=== PATIENT | female | born 1950 | race Caucasian/White ===

== ENCOUNTER 2018-07-27 09:32 | Emergency (ER) | payer OTHER ==
[~2018-07-27] VITALS: Ht 154.9 cm; Wt 59.0 kg
[~2018-07-27 09:32] MED LIST: ALL DAY ALLERGY10 M2 PO; BEN20 PO; BENAZEPRIL HYDR40 M1; BENAZEPRIL10 M1 PO; DICLOFENAC SODI75 MG PO; GLU500 PO; GOOD SENSE OMEP20 MG PO; LOVASTATIN40 MG PO; METFORMIN HCL850 MG PO; MYRBETRIQ25 MG; NITROGLYCERIN0.4 MG SL; PANTOPRAZOLE SO40 M1 PO; PAROXETINE HCL20 M1 PO; PAROXETINE PO; PAROXETINE20 M1 PO; ZES20
[2018-07-27 09:40] VITALS: Ht 154.9 cm; Wt 59.0 kg
[2018-07-27 12:24] VITALS: BP 160/83
== END 2018-07-27 12:24 | disposition home or self-care (01) ==
LOC: ED 09:32
DX: S06.0X1A Concussion with loss of consciousness of 30 minutes or less, initial encounter (principal); S00.81XA Abrasion of other part of head, initial encounter; I10 Essential (primary) hypertension; E11.9 Type 2 diabetes mellitus without complications; E78.00 Pure hypercholesterolemia, unspecified; M81.0 Age-related osteoporosis without current pathological fracture; Z88.5 Allergy status to narcotic agent; W18.49XA Other slipping, tripping and stumbling without falling, initial encounter; Y93.89 Activity, other specified; Y92.89 Other specified places as the place of occurrence of the external cause; Y99.9 Unspecified external cause status